=== PATIENT | female | born 1950 | race Caucasian/White ===

== ENCOUNTER 2021-07-06 06:59 | Day surgery (SDC) | payer OTHER ==
[~2021-07-06] VITALS: Ht 152.4 cm; Wt 58.1 kg
[~2021-07-06 06:59] MED LIST: ASPI-498 PO; CYAN100088 PO; METF-371 PO; MIRA25TA PO; OLME40TA26 PO; OME20GT PO; OXYB5TAB24 PO; ROPI0.5T18 PO; ROPI0.5T32 PO; [UNRECOGNIZED DRUG - CODE] PO
[2021-07-06] MEDS ORDERED: LIDOCAINE 2%HCL (LOCAL ANESTH.) INJ 20ML MDV ONE (07:17)
[2021-07-06] MEDS ORDERED: IODIXANOL 320MG/ML 100ML BTL IV ONE (07:17)
[2021-07-06] MEDS ORDERED: fentaNYL CITRATE 100 MCG/2 ML VL ONE (07:51)
[2021-07-06] MEDS ORDERED: NITROGLYCERIN 5MG/ML 10ML VIAL IV ONE (07:51)
[2021-07-06] MEDS ORDERED: HEPARIN SODIUM (PORCINE) 5000 UNITS/ML 1ML VIAL ONE (07:51)
[2021-07-06] MEDS ORDERED: ANGIOMAX 250 MG VIAL IV ONE (07:51)
[2021-07-06] MEDS ORDERED: VERAPAMIL 2.5MG/ML INJ 2ML VIAL IV ONE (07:51)
[2021-07-06] MEDS ORDERED: SODIUM CHL 0.9% 50 ML ONE (07:52)
[2021-07-06] MEDS ORDERED: MIDAZOLAM HCL 2MG/2ML 2ml VIAL (1mg/ml) ONE (07:52)
[2021-07-06] MEDS ORDERED: methylPREDNISolone SOD SUCC 125 MG/2 ML VL ONE (08:17)
[2021-07-06] MEDS ORDERED: diphenhdrAMINE HCL 50 MG/1 ML VL ONE (08:17)
[2021-07-06] MEDS ORDERED: FAMOTIDINE (10MG/ML) 2ML VL IV ONE (08:18)
[2021-07-06 08:55] VITALS: BP 105/62
[2021-07-06 09:10] VITALS: BP 104/61
[2021-07-06 09:25] VITALS: BP 95/60
[2021-07-06 09:40] VITALS: BP 106/68
== END 2021-07-06 11:03 | disposition home or self-care (01) ==
LOC: CATH 06:59
PROVIDERS: ATTEND Internal Medicine Cardiovascular Disease
DX: R94.39 Abnormal result of other cardiovascular function study (principal); I25.10 Atherosclerotic heart disease of native coronary artery without angina pectoris; I11.9 Hypertensive heart disease without heart failure; E11.9 Type 2 diabetes mellitus without complications; K21.9 Gastro-esophageal reflux disease without esophagitis; I44.7 Left bundle-branch block, unspecified; Z82.49 Family history of ischemic heart disease and other diseases of the circulatory system; Z20.822 Contact with and (suspected) exposure to COVID-19; Z98.890 Other specified postprocedural states; Z79.899 Other long term (current) drug therapy
CPT/HCPCS: 93458; C1769; C1887; C1894; J1200; J1644; J2250; J2930; J3010; J3490; J7030; Q9967; U0003; 99152